=== PATIENT | male | born 2000 | race Caucasian/White ===

== ENCOUNTER 2022-10-07 11:39 | Emergency (ER) | payer OTHER, SELFPAY ==
[2022-10-07 11:45] VITALS: BP 136/63; PULSE 82; RESP 16; TEMP 37.2; O2SAT 100
--- NOTE | 2022-10-07 11:45 | ED.EYEPROB ---
HPI - Eye Problem General Chief complaint: Eye Problems Stated complaint: Right eye swollen Time Seen by Provider: 10/07/22 11:45 Source: patient and RN notes reviewed History of Present Illness HPI Narrative: patient is a 21-year-old male who presents to the Urgent Care with complaints of right upper eyelid swelling and discomfort. Patient states he noticed it on Wednesday and thought he just had a stye. Patient has not done anything [id number] for his symptoms. Denies of any fevers. Denies any changes in vision. Denies any known injury to the eye. No other acute complaints. No acute distress noted. Patient aware of the plan of care. Some parts of this dictation were generated by voice recognition software and may contain typographical and/or grammatical inaccuracies. Related Data Allergies Allergy/AdvReac Type Severity Reaction Status Date / Time No Known Allergies Allergy Verified 10/07/22 11:53 Review of Systems Review of Systems: CONSTITUTIONAL: Denies fever, chills, or sweats. EYES: Reports of right upper eyelid redness and swelling ENT: Denies rhinorrhea, congestion, sore throat, or otalgia. CARDIOVASCULAR: Denies chest pain, palpitations, or edema. RESPIRATORY: Denies cough or dyspnea. GASTROINTESTINAL: Denies abdominal pain, nausea, vomiting, or diarrhea. GENITOURINARY: Denies dysuria or hematuria. SKIN: Denies rash or itching. MUSCULOSKELETAL: Denies back pain, joint pain, or myalgia. NEUROLOGIC: Denies headache, numbness, or weakness. All other systems reviewed are negative, except as documented in HPI. PMFSH Comments At the time of my signature, I reviewed and agree with the nursing past medical, surgical, social, and family history. There is no relevant family history pertinent to the patient complaint. Exam Narrative: GENERAL: This is a well-nourished, well-developed patient, in no apparent distress. HEAD: normocephalic, atraumatic. EYES: PERRL. Sclera clear/white. Vision is grossly intact. mild right upper eyelid erythema and edema EARS: External ears normal NOSE: External nose normal with no obvious nasal discharge, nares without redness, no rhinorrhea. THROAT: Mucous membranes moist NECK: Neck supple, SKIN: warm, intact with no suspicious lesions or rash, good texture and turgor. NEURO: awake, alert, and oriented to person, place and time. There were no obvious focal neurologic abnormalities. EXTREMITIES: No clubbing, cyanosis, or edema. Course Course Level of Care: Express Care Visit Vital Signs Vital signs: Vital Signs Temperature 98.9 F 10/07/22 11:45 Pulse Rate 82 10/07/22 11:45 Respiratory Rate 16 10/07/22 11:45 Blood Pressure 136/63 10/07/22 11:45 Pulse Oximetry 100 10/07/22 11:45 Oxygen Delivery Room Air 10/07/22 11:45 Temperature 98.9 F 10/07/22 11:45 Pulse Rate 82 10/07/22 11:45 Respiratory Rate 16 10/07/22 11:45 Blood Pressure 136/63 10/07/22 11:45 Pulse Oximetry 100 10/07/22 11:45 Oxygen Delivery Room Air 10/07/22 11:45 reviewed MDM - Eye Problem MDM Narrative Medical decision making narrative: advised the patient to complete total antibiotic regimen as prescribed. Be sure to eat and drink with the medication. Use the eyedrops to the right eye as directed. May use warm compress/Tylenol/ ibuprofen as needed for pain or discomfort. If he develops any increase in swelling associated with changes in vision or fever -go to the emergency room. Follow-up with your PCP within 2-5 days or for worsening symptoms or failure to improve. Differential Diagnosis Differential diagnosis: Likely corneal abrasion, conjunctivitis, acute iritis, periorbital cellulitis, subconjunctival hemorrhage and corneal ulcer Critical Care Time Critical Care Time Critical Care Time: No Discharge Plan Discharge Clinical Impression: Periorbital cellulitis Qualifiers: Laterality: right Qualified Code(s): L03.213 - Periorbital cellulitis Pat
== END 2022-10-07 12:00 | disposition home or self-care (01) ==
PROVIDERS: Emergency Provider Nurse Practitioner Family
DX: L03.213 Periorbital cellulitis (principal)
CPT/HCPCS: 99203; G0463

== ENCOUNTER 2024-02-25 21:38 | Emergency (ER) | payer OTHER, SELFPAY ==
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
[2024-02-25 21:41] VITALS: BP 144/77; PULSE 88; RESP 18; TEMP 36.9; O2SAT 98
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
[2024-02-25] MEDS: HYDROcodone/acetaminophen (*CRX) 5-325 MG TABLET 1 TAB PO (22:01)
[2024-02-25] MEDS: KETOROLAC (*BKC) 60 MG/2 ML VIAL IM (22:02)
[2024-02-25] MEDS: TETANUS,DIPHTHERIA,AC PERTUSSIS ADULT 0.5 ML (ADACEL) IM (22:03)
[2024-02-25] MEDS: SILVER SULFADIAZINE 1% CR 50 GM JAR (*BKC) 1 APPLIC (22:29)
[2024-02-25] MEDS: CEPHALEXIN 500 MG CAPSULE PO (22:29)
[2024-02-25] MEDS: SILVER SULFADIAZINE 1% CR 50 GM JAR (*BKC) 1 APPLIC TOPICAL (22:30)
[2024-02-25 22:58] VITALS: BP 134/70; PULSE 80; RESP 16; O2SAT 97
== END 2024-02-25 22:59 | disposition home or self-care (01) ==
LOC: CHSED 22:20
PROVIDERS: Emergency Provider Emergency Medicine; PCP Family Medicine
DX: T22.211A Burn of second degree of right forearm, initial encounter (principal); T25.211A Burn of second degree of right ankle, initial encounter; T24.211A Burn of second degree of right thigh, initial encounter; S89.91XA Unspecified injury of right lower leg, initial encounter; V28.09XA Other motorcycle driver injured in noncollision transport accident in nontraffic accident, initial encounter; Z23 Encounter for immunization
CPT/HCPCS: 70450; 72125; 90471; 90715; 96372; 99284; A9270; J1885